=== PATIENT | female | born 1965 | race Caucasian/White ===

== ENCOUNTER 2016-09-06 07:27 | Inpatient (IN) | payer MEDICAID ==
[~2016-09-06] VITALS: Ht 157.5 cm; Wt 54.0 kg
[2016-09-06 07:35] VITALS: BP 136/83
--- NOTE | 2016-09-06 07:36 | NUR ---
Pt taken to bed 4.
--- NOTE | 2016-09-06 07:37 | NUR ---
Note undone in EDM - 09/06/16 at 1324 by [email or web address] 51/F BIB FAMILY C/O N/V & ABDOMINAL PAIN X5 DAYS. HX GERD, DM, HYPERLIPIDEMIAPATIENT SKIN IS PINK/WARM/DRY; AAOX4 WITH EVEN AND STEADY GAIT; LUNGS CLEAR BL; HR EVEN AND REGULAR; PT DENIES ANY FEVER, CP, SOB, OR COUGH AT THIS TIME; PATIENT STATES PAIN OF 10/10 AT THIS TIME; VSS; PATIENT POSITIONED FOR COMFORT; HOB ELEVATED; BEDRAILS UP X2; BED DOWN. ER MD MADE AWARE OF PT STATUS.
--- NOTE | 2016-09-06 07:37 | NUR ---
51/F BIB FAMILY C/O N/V & ABDOMINAL PAIN X5 DAYS. HX GERD, DM,HYPERLIPIDEMIA. SKIN IS PINK/WARM/DRY; AAOX4 WITH EVEN AND STEADY GAIT; LUNGS CLEAR BL; HR EVEN AND REGULAR; PT DENIES ANY FEVER, CP, SOB, OR COUGH AT THIS TIME; PATIENT STATES PAIN OF 10/10 AT THIS TIME; VSS; PATIENT POSITIONED FOR COMFORT; HOB ELEVATED; BEDRAILS UP X2; BED DOWN. ER MD MADE AWARE OF PT STATUS.
[2016-09-06] MEDS ORDERED: GLIP5TAB4 PO (07:38)
[2016-09-06] MEDS ORDERED: OMEP20EC6 PO (07:38)
--- NOTE | 2016-09-06 07:47 | NUR ---
Patient being evaluated by Dr. Alfaro at bedside.
[2016-09-06] MEDS ORDERED: HYDROmorphone 1 MG/ML AMP IVP ONE ×2 (07:55→12:20)
[2016-09-06] MEDS ORDERED: ONDANSETRON 4 MG/2 ML VIAL IVP ONE ×3 (07:55→12:20)
[2016-09-06] MEDS ORDERED: NACL 0.9% 1,000 ML IV ONE ×3 (07:55→12:20)
[2016-09-06 08:14] LABS: BASOPHILS # (AUTO) 0.3 K/uL (0.00-0.22); BASOPHILS % (AUTO) 3.7 % (0.0-2.0); EOSINOPHILS # (AUTO) 0.3 K/uL (0-0.4); EOSINOPHILS % (AUTO) 4.3 % (0.0-4.0); HEMATOCRIT 39.8 % (36-48); HEMOGLOBIN 12.9 g/dL (12.0-16.0); LYMPHOCYTES # (AUTO) 2.1 K/uL (2.5-16.5); MEAN CORPUSCULAR HEMOGLOBIN 29 pg (27-31); MEAN CORPUSCULAR HGB CONC 32 g/dL (33-37); MEAN CORPUSCULAR VOLUME 90 fL (80-94); MONOCYTES # (AUTO) 0.4 K/uL (0.8-1.0); MONOCYTES % (AUTO) 6.1 % (1.7-9.3); NEUTROPHILS # (AUTO) 3.8 K/uL (1.8-7.7); NEUTROPHILS % (AUTO) 55.9 % (42.2-75.2); PLATELET COUNT (AUTO) 252 K/uL (140-450); RED BLOOD CELL COUNT(AUTO) 4.43 MIL/uL (4.20-5.40); RED CELL DISTRIBUTION WIDTH 12.5 % (11.6-13.7); WHITE BLOOD COUNT (AUTO) 6.9 K/uL (4.8-10.8)
[2016-09-06 08:23] LABS: CALCIUM 8.5 mg/dL (8.5-10.1); CARBON DIOXIDE 28.5 mmol/L (21-32); CREATININE 0.5 mg/dL (0.6-1.3); POTASSIUM 4.5 mmol/L (3.5-5.1)
--- NOTE | 2016-09-06 08:27 | NUR ---
Consent for CT signed by patient and placed in chart.
[2016-09-06 08:29] LABS: ALBUMIN 3.3 g/dL (3.4-5.0); TOTAL BILIRUBIN 0.5 mg/dL (0.0-1.0); TOTAL PROTEIN, SERUM 7.9 g/dL (6.4-8.2)
[2016-09-06 08:41] LABS: APPEARANCE,URINE CLEAR (CLEAR); BILIRUBIN,URINE NEGATIVE (NEGATIVE); BLOOD, URINE TRACE-I (NEGATIVE); COLOR,URINE YELLOW (YELLOW); LEUKOCYTE ESTERASE ,URINE NEGATIVE (NEGATIVE); NITRITE, URINE NEGATIVE (NEGATIVE); PH,URINE 6.5 (5.0-9.0); PROTEIN,URINE NEGATIVE (NEGATIVE); UGLUCOSE 3+ (NEGATIVE)
--- NOTE | 2016-09-06 08:46 | NUR ---
PT TAKEN TO CT VIA TRACY ACCOMPANIED BY MANAGED CARE COORDINATOR
[2016-09-06 08:50] LABS: BACTERIA,URINE None Seen /HPF (None Seen); RBC,URINE 0-5 (RARE) /HPF (0-5); SQUAMOUS EPITHELIAL CELL,UR 0-3 (FEW) /LPF (0-3 (FEW)); WBC,URINE NONE SEEN /HPF (0-5)
--- NOTE | 2016-09-06 09:12 | NUR ---
BACK FROM CT
--- NOTE | 2016-09-06 09:25 | NUR ---
Patient appears to be resting comfortably in bed. Vital Signs within normal limits. Respirations even and unlabored.WILL CONTINUE TO MONITOR
--- NOTE | 2016-09-06 10:05 | NUR ---
PT HAS N/V ; NOTIFIED ER MD DR ARMENDARIZ. NEW ORDER IVF & ZOFRAN IV Addendum: 09/06/16 at 1019 by [email or web address] MARY PAIN
--- NOTE | 2016-09-06 10:10 | NUR ---
GAVE IVF & MED ORDER
--- NOTE | 2016-09-06 10:17 | NUR ---
Patient appears to be resting comfortably in bed. Vital Signs within normal limits. Respirations even and unlabored.NO N/V AT THIS TIME. WILL CONTINUE TO MONITOR.
--- NOTE | 2016-09-06 10:17 | NUR ---
Jody galicia in ED - 09/06/16 at 1019 by [email or web address] PT HAS N/V ; NOTIFIED ER MD DR ARMENDARIZ. NEW ORDER IVF & ZOFRAN IV
--- NOTE | 2016-09-06 11:22 | NUR ---
Patient appears to be SLEEPING comfortably in bed. Vital Signs within normal limits. Respirations even and unlabored.WILL CONTINUE TO MONITOR
[2016-09-06] MEDS: NACL 0.9% 1,000 ML IV SCH ×2 (12:59→21:48)
[2016-09-06] MEDS ORDERED: DOCUSATE SODIUM 100 MG GELCAP PO PRN (13:00)
[2016-09-06] MEDS ORDERED: ACETAMINOPHEN 325 MG TAB PO PRN (13:00)
[2016-09-06] MEDS ORDERED: MORPHINE SULFATE 2 MG/ML SYR IVP PRN (13:00)
[2016-09-06] MEDS ORDERED: ONDANSETRON 4 MG/2 ML VIAL IM/IVP PRN (13:00)
--- NOTE | 2016-09-06 13:00 | NUR ---
PULSE OX 91% GAVE OXYGEN 2L/M VIA NC. PULSE OX 96%
--- NOTE | 2016-09-06 13:25 | NUR ---
GAVE REPORT TO LASHANDA GOMEZ
--- NOTE | 2016-09-06 13:26 | NUR ---
Patient will be admitted to care of [facility]. Admited to TELE. Will go to [id number]. Belongings list completed. Report to LASHANDA GOMEZ.
[2016-09-06 13:46] LABS: CHOL/HDL RATIO 4.2 (1-4.5); MAGNESIUM 1.5 mg/dL (1.8-2.4); PHOSPHORUS 3.1 mg/dL (2.5-4.9); THYROID STIMULATING HORMONE 3.17 uIU/mL (0.34-3.74)
[2016-09-06 14:06] LABS: INR 1.1 (0.8-1.2); PARTIAL THROMBOPLASTIN TIME 26.8 secs (22-35.6)
--- NOTE | 2016-09-06 14:10 | NUR ---
ADMITTED FROM ER VIA [facility], ACCOMPANIED BY PT. FRIEND -BRODY. AWAKE, ALERT, AND ORIENTED X4. SPEECH CLEAR. NO SOB, NOTED. IN STABLE CONDITION. SKIN INTACT. KEEP COMFORTABLE ON BED. EXPLAINED DIAGNOSIS, PLAN OF CARE, PAIN MANAGEMENT TEACHING, VISITORS POLICY, USE OF CALL LIGHT/BED/TV/BATHROOM. VERBALIZED UNDERSTANDING. CALL LIGHT WITHIN REACH.
[2016-09-06 14:30] VITALS: BP 125/62
[2016-09-06 16:00] VITALS: BP 120/62
--- NOTE | 2016-09-06 16:26 | NUR ---
WENT TO RADIOLOGY VIA WHEELCHAIR. IN STABLE CONDITION.
--- NOTE | 2016-09-06 16:40 | NUR ---
BACK FROM RADIOLOGY VIA WHEELCHAIR. NO SOB, NOTED. KEEP COMFORTABLE ON BED.
[2016-09-06] MEDS ORDERED: PHENAZOPYRIDINE 100 MG TAB PO SCH (18:00)
[2016-09-06] MEDS ORDERED: BLOOD GLUCOSE MONITORING 1 DEV DEV FS SCH (18:00)
[2016-09-06 18:19] LABS: AMPHETAMINE, URINE NEG. ng/ml (NEG <=1000); BARBITURATE, URINE NEG. ng/ml (NEG <=200); BENZODIAZEPINE, URINE NEG. ng/mL (NEG <=200); CANNABINOID, URINE NEG. ng/mL (NEG <=50); COCAINE, URINE NEG. ng/mL (NEG <=300); OPIATE, URINE NEG. ng/mL (NEG <=2000); PHENCYCLIDINE SCREEN,URINE NEG. ng/mL (NEG <=25)
[2016-09-06] MEDS: PHENAZOPYRIDINE 100 MG TAB PO SCH (18:44)
--- NOTE | 2016-09-06 19:07 | NUR ---
BEDSIDE REPORT GIVEN TO JAZLYN CASTANEDA -LASHANDA. IVF INFUSING WELL. IN STABLE CONDITION.
--- NOTE | 2016-09-06 19:25 | NUR ---
RECEIVED REPORT FROM LASHANDA GOMEZ AT BEDSIDE. INITIAL ASSESSMENT COMPLETED. PT AAOX4; PORTUGUESE SPEAKING. PT'S SKIN IS INTACT. PT HAS IV ON LEFT AC G 20 INFUSING FLUIDS WELL. ORIENTED PT TO ROOM AND SURROUNDINGS AND USE OF CALL LIGHT. EXPLAINED PLAN OF CARE TO PT AND SHE VERBALIZES UNDERSTANDING. WILL CONTINUE TO MONITOR PT. CALL LIGHT WITHIN REACH.
[2016-09-06 20:00] VITALS: BP 117/62
[2016-09-06] MEDS: MAGNESIUM OXIDE 400 MG TAB PO SCH (20:46)
[2016-09-06] MEDS: INSULIN LISPRO SLIDING SCALE 100 UNITS/ML VIAL SUBQ PRN (20:51)
[2016-09-06] MEDS: BLOOD GLUCOSE MONITORING 1 DEV DEV FS SCH (20:53)
--- NOTE | 2016-09-06 20:56 | NUR ---
PT TOLERATED 2100 MED WELL. CALL LIGHT WITHIN REACH.
--- NOTE | 2016-09-06 22:27 | NUR ---
PT REQUESTED ICED COLD WATER. WILL PROVIDE WITH NEEDS. CALL LIGHT WITHIN REACH.
--- NOTE | 2016-09-06 23:31 | NUR ---
PT'S DAUGHTER TASHIA CALLED TO ASK ABOUT PT'S STATUS. THEY WANTED TO TALK TO DR. DR. HOFFMAN TALKED TO THEM REGARDING THE PT'S PLAN OF CARE. WILL CONTINUE TO MONITOR PT.
[2016-09-07] VITALS: BP 128/68
--- NOTE | 2016-09-07 00:13 | NUR ---
PT COMPLAINING OF ABDOMINAL PAIN 06/28. VS STABLE, WILL MEDICATE ORDERED.
[2016-09-07] MEDS: HYDROcodone/APAP 7.5/325 MG 1 TAB PO PRN (00:17)
--- NOTE | 2016-09-07 01:53 | NUR ---
PT REQUESTED TO HAVE IV DISCONNECTED TO AMBULATE TO THE RESTROOM. PT BACK IN BED. WILL CONTINUE TO MONITOR PT.
--- NOTE | 2016-09-07 02:30 | NUR ---
PT WEARING SCDS. CALL LIGHT WITHIN REACH.
[2016-09-07 04:00] VITALS: BP 117/59
--- NOTE | 2016-09-07 04:31 | NUR ---
PT REQUESTING APPLE JUICE AND CRACKERS. CALL LIGHT WITHIN REACH.
--- NOTE | 2016-09-07 06:09 | NUR ---
PT ASKING ME TO CLOSE DOOR. PT STATES THAT SHE IS VERY SLEEPY. CALL LIGHT WITHIN REACH.
[2016-09-07 06:26] LABS: ANION GAP 8.7 (8-16); CREATININE 0.5 mg/dL (0.6-1.3); POTASSIUM 3.7 mmol/L (3.5-5.1)
[2016-09-07] MEDS: BLOOD GLUCOSE MONITORING 1 DEV DEV FS SCH ×4 (06:34→20:16)
[2016-09-07] MEDS: INSULIN LISPRO SLIDING SCALE 100 UNITS/ML VIAL SUBQ PRN ×4 (06:34→21:02)
--- NOTE | 2016-09-07 07:20 | NUR ---
ASSUMED CONTINUITY OF CARE. NO SIGNS AND SYMPTOMS OF ACUTE DISTRESS NOTICED. INITIAL ASSESSMENT DONE. NO C/O PAIN. NO C/O N/V. KEEP COMFORTABLE ON BED. EXPLAINED DIAGNOSIS, PLAN OF CARE, PAIN MANAGEMENT TEACHING, USE OF CALL LIGHT/BED/TV/BATHROOM. VERBALIZED UNDERSTANDING. CALL LIGHT WITHIN REACH.
--- NOTE | 2016-09-07 07:21 | NUR ---
ENDORSED PLAN OF CARE TO DAY SHIFT NURSE. PT IN STABLE CONDITION.
[2016-09-07 08:00] VITALS: BP 126/67
--- NOTE | 2016-09-07 08:00 | NUR ---
Patient's Plan of Care was discussed and reviewed with PHOTO MASK PROCESSOR: PATRICIA
--- NOTE | 2016-09-07 08:14 | NUR ---
PATIENT HAS BEEN SCREENED AND CATEGORIZED MODERATE NUTRITION RISK. PATIENT WILL BE SEEN WITHIN 3-5 DAYS OF ADMISSION. 09/09/16-09/11/[address]
[2016-09-07 08:20] LABS: T4 (THYROXINE) 5.8 ug/dL (4.5-12.0)
[2016-09-07] MEDS: PHENAZOPYRIDINE 100 MG TAB PO SCH ×3 (08:34→17:42)
[2016-09-07] MEDS: MAGNESIUM OXIDE 400 MG TAB PO SCH ×2 (08:34→20:50)
[2016-09-07 08:38] LABS: HEMOGLOBIN A1C 11.5 % (4.8-5.6)
[2016-09-07 12:00] VITALS: BP 116/50
--- NOTE | 2016-09-07 12:00 | NUR ---
VITALS SIGNS STABLE. NO C/O PAIN. WILL MONITOR.
--- NOTE | 2016-09-07 15:26 | NUR ---
SEEN WATCHING TV AT THIS TIME. NO C/O PAIN. CONTINUE MONITORING.
[2016-09-07 16:00] VITALS: BP 127/71
[2016-09-07] MEDS: NACL 0.9% 1,000 ML IV SCH (17:42)
--- NOTE | 2016-09-07 19:15 | NUR ---
BEDSIDE REPORT GIVEN TO [facility]. IVF INFUSING WELL. IN STABLE CONDITION.
--- NOTE | 2016-09-07 19:20 | NUR ---
RECEIVED REPORTS FROM DAY RN, PATIENT RESTING IN BED, FAMILY MEMBERS AT BEDSIDE. PATIENT AWAKE ALERT ORIENTED X4. IV PATENT AND INTACT, FLUSHED WITH NS. NO S/S OF ACUTE DISTRESS NOTED, PLAN OF CARE DISCUSSED, VERBALIZED UNDERSTANDING, CALL LIGHT WITHIN REACH, SAFETY MEASURE ENSURED, WILL CONTINUE TO MONITOR.
[2016-09-07 20:00] VITALS: BP 117/61
[2016-09-08] VITALS: BP 114/49
--- NOTE | 2016-09-08 | NUR ---
PATIENT ASLEEP IN BED, NO S/S OF ACUTE DISTRESS NOTED, CALL LIGHT WITHIN REACH, SAFETY MEASURE ENSURED, WILL CONTINUE TO MONITOR.
[2016-09-08 04:00] VITALS: BP 119/63
[2016-09-08] MEDS: HYDROcodone/APAP 7.5/325 MG 1 TAB PO PRN (04:36)
--- NOTE | 2016-09-08 04:36 | NUR ---
PATIENT STATED PAIN 5/10. PAIN MEDICATION GIVEN ORDERED, WILL CONTINUE TO MONITOR.
[2016-09-08 05:57] LABS: BASOPHILS # (AUTO) 0.3 K/uL (0.00-0.22); BASOPHILS % (AUTO) 3.6 % (0.0-2.0); EOSINOPHILS # (AUTO) 0.3 K/uL (0-0.4); EOSINOPHILS % (AUTO) 3.8 % (0.0-4.0); HEMOGLOBIN 12.5 g/dL (12.0-16.0); LYMPHOCYTES # (AUTO) 2.6 K/uL (2.5-16.5); MEAN CORPUSCULAR HEMOGLOBIN 29 pg (27-31); MEAN CORPUSCULAR HGB CONC 33 g/dL (33-37); MEAN CORPUSCULAR VOLUME 90 fL (80-94); MONOCYTES # (AUTO) 0.6 K/uL (0.8-1.0); MONOCYTES % (AUTO) 8.9 % (1.7-9.3); NEUTROPHILS # (AUTO) 3.4 K/uL (1.8-7.7); NEUTROPHILS % (AUTO) 47.7 % (42.2-75.2); PLATELET COUNT (AUTO) 239 K/uL (140-450); RED BLOOD CELL COUNT(AUTO) 4.24 MIL/uL (4.20-5.40); RED CELL DISTRIBUTION WIDTH 12.7 % (11.6-13.7); WHITE BLOOD COUNT (AUTO) 7.2 K/uL (4.8-10.8)
[2016-09-08 06:12] LABS: MAGNESIUM 1.7 mg/dL (1.8-2.4); PHOSPHORUS 3.6 mg/dL (2.5-4.9)
[2016-09-08 06:33] LABS: ANION GAP 11.6 (8-16); CALCIUM 8.2 mg/dL (8.5-10.1); CARBON DIOXIDE 28.1 mmol/L (21-32); CREATININE 0.5 mg/dL (0.6-1.3); POTASSIUM 3.7 mmol/L (3.5-5.1)
[2016-09-08] MEDS: BLOOD GLUCOSE MONITORING 1 DEV DEV FS SCH ×2 (06:59→11:52)
--- NOTE | 2016-09-08 07:10 | NUR ---
ENDORSED PLAN OF CARE TO DAY RN. PATIENT IS IN STABLE CONDITION
[2016-09-08] MEDS: INSULIN LISPRO SLIDING SCALE 100 UNITS/ML VIAL SUBQ PRN ×2 (07:29→11:53)
--- NOTE | 2016-09-08 07:30 | NUR ---
RECEIVED REPORT FROM LASHANDA JAY. PT IS AWAKE RESTING IN BED, PT IS A/OX4, SHE IS AMBULATORY, SKIN IS INTACT, IV IS ON THE LT AC, PATENT, INTACT FLUSHING WELL, NO S/S OF RESPIRATORY DISTRESS, PT IS COMPLAINING OF 8/10 HEADACHE, DISCUSSED PLAN OF CARE WITH PT, PT VERBALIZED UNDERSTANDING, SAFETY/FALL PRECAUTIONS ARE IN PLACE, CALL LIGHT IS WITHIN REACH, WILL MEDICATE WITH PRN PAIN MEDICATION FOR HEADACHE, WILL CONTINUE TO MONITOR.
[2016-09-08 08:00] VITALS: BP 129/67
[2016-09-08] MEDS: MAGNESIUM OXIDE 400 MG TAB PO SCH (08:19)
[2016-09-08] MEDS: PHENAZOPYRIDINE 100 MG TAB PO SCH (08:19)
--- NOTE | 2016-09-08 09:33 | NUR ---
PT IS RESTING IN BED AT THIS TIME, PT STATED HER HEADACHE HAD GONE AWAY, ALL NEEDS MET AT THIS TIME, CALL LIGHT IS WITHIN REACH.
[2016-09-08] MEDS ORDERED: BISACODYL 10 MG SUPP RC PRN (09:35)
[2016-09-08] MEDS ORDERED: METF500T64 PO (11:08)
[2016-09-08] MEDS ORDERED: CIPR250T3 PO (11:29)
--- NOTE | 2016-09-08 11:30 | NUR ---
PT IS AWAKE RESTING IN BED, DAUGHTER IS AT HER BEDSIDE, I LET THEM KNOW THE DOCTOR HAD PUT IN AN ORDER FOR DISCHARGE AND I WOULD BE BRINGING HER THE DISCHARGE PAPERWORK.
--- NOTE | 2016-09-08 11:45 | NUR ---
PT DISCHARGE INSTRUCTIONS WERE GIVEN, ID WRIST BAND WAS REMOVED, IV WAS REMOVED, CATHETER TIP WAS INTACT.
--- NOTE | 2016-09-08 12:00 | NUR ---
PT STABLE UPON DISCHARGE, PT WAS WHEELED OUT TO FRONT LOBBY BY NURSE AND ACCOMPANIED BY DAUGHTER.
[2016-09-08] MEDS ORDERED: ACET-2863 PO (12:24)
[2016-09-08] MEDS ORDERED: METF500T PO (12:25)
[2016-09-08] MEDS ORDERED: metFORMIN 850 MG TAB PO SCH (17:00)
== END 2016-09-08 12:00 | disposition home or self-care (01) | DRG 463 ==
LOC: MED 07:27 → MTU 13:17
PROVIDERS: ADMIT Student in an Organized Health Care Education/Training Program; ATTEND Student in an Organized Health Care Education/Training Program
DX: N10 Acute pyelonephritis (principal); N17.0 Acute kidney failure with tubular necrosis; E11.65 Type 2 diabetes mellitus with hyperglycemia; E78.5 Hyperlipidemia, unspecified; E83.42 Hypomagnesemia; K21.9 Gastro-esophageal reflux disease without esophagitis; E83.51 Hypocalcemia; E46 Unspecified protein-calorie malnutrition; Z79.899 Other long term (current) drug therapy; Z90.49 Acquired absence of other specified parts of digestive tract; Z91.14 Patient's other noncompliance with medication regimen; Z68.21 Body mass index [BMI] 21.0-21.9, adult
CPT/HCPCS: 36415; 71020; 80048; 80053; 80305; 81001; 82150; 82948; 83036; 83690; 83735; 84100; 84436; 84443; 85025; 85610; 85730; 87040; 87081; 87086; 93005; 93925; 93970; 96361; 96374; 96375; 96376; 99285; J0696; J1170; J1815; J2270; J2405; J7030; J7060; Q0092; Q9967